=== PATIENT | male | born 1985 | race Caucasian/White ===

== ENCOUNTER 2019-09-04 00:16 | Emergency (ER) | payer BC ==
[~2019-09-04] VITALS: Ht 167.6 cm; Wt 155.1 kg
[2019-09-04 00:34] VITALS: Ht 167.6 cm; Wt 155.1 kg
[2019-09-04 03:25] VITALS: BP 149/90
== END 2019-09-04 03:25 | disposition home or self-care (01) ==
LOC: ED 00:16
DX: S62.101A Fracture of unspecified carpal bone, right wrist, initial encounter for closed fracture (principal); X58.XXXA Exposure to other specified factors, initial encounter; Y93.89 Activity, other specified; Y92.89 Other specified places as the place of occurrence of the external cause; Y99.8 Other external cause status

== ENCOUNTER → 2019-09-15 | Outpatient (CLI) | payer BC | END | disposition home or self-care (01) | LOC: RD 17:37 | PROVIDERS: ATTEND Orthopaedic Surgery | DX: M25.531 Pain in right wrist (principal) ==